=== PATIENT | female | born 1985 | race Caucasian/White ===

== ENCOUNTER 2019-07-07 20:00 | Emergency (ER) | payer BC, OTHER ==
[2019-07-07] MEDS ORDERED: methylPREDNISolone 125 MG* 2 ML VIAL IV ONE (21:06)
[2019-07-07] MEDS ORDERED: diPHENhydraMINE IV* 50 MG/ML 1 ml VIAL (BENADRYL) IM ONE (21:06)
--- NOTE | 2019-07-07 21:07 | ED ---
Skin Complaint - HPI Summary HPI Summary: This pt is a 34 Y/O F presenting to [facility] accompanied by her with a CC of hives that started in 07/06/19 in the morning without improvements and are currently rated a 02/10 in severity. She states that the hives spread from her legs and currently cover her entire body. She states that her shoulders have been itchy and her hives were originally itchy as well but she states that she became SOB and has had decreased itchiness. She states that she was placed on clindamycin for 4 times a day and was taking it for over a week. She states that she has been taking prednisone which was prescribed by her PCP. She states that she has been having a nonproductive cough and states that she feels phlegmy. She denies any CP, headaches, N/V, and fevers. She has no known aggravating or alleviating factors. She has a pertinent PMHx of allergies to mushrooms, penicillin, and ALL brand laundry detergent. She states that she breaks out in hives. - History of Current Complaint Chief Complaint: EDAllergicReaction Time Seen by Provider: 07/07/19 20:48 Stated Complaint: ALLERGIC REACTION/RESP DISTRESS PER PT Hx Obtained From: Patient Onset/Duration: Started Days Ago - 1 Skin Exposure Onset/Duration: Days Ago - 1 Timing: Constant Onset Severity: Mild Current Severity: Mild Pain Intensity: 2 Pain Scale Used: 0-10 Numeric Skin Location: Diffuse, Face, Chest, Arm, Leg, Other: - trunk Character: Hives Aggravating Symptom(s): Nothing Alleviating Symptom(s): Nothing Associated Signs & Symptoms: Negative - CP, headaches, N/V, and fevers, Difficulty Breathing - Allergy/Home Medications Allergies/Adverse Reactions: Allergies Allergy/AdvReac Type Severity Reaction Status Date / Time mushroom Allergy Anaphylatic Verified 07/07/19 20:07 Shock Penicillins Allergy Hives Verified 07/07/19 20:07 ALL brand laundry detergent Allergy Hives Uncoded 07/07/19 20:08 Home Medications: Home Medications Norethindrone (NF) [Leanne (NF)] 0.35 mg PO DAILY 07/07/19 [History Confirmed 07/07/19] PMH/Surg Hx/FS Hx/Imm Hx Previously Healthy: Yes Endocrine/Hematology History: Denies: Hx Diabetes Cardiovascular History: Denies: Hx Hypertension Respiratory History: Denies: Hx Asthma Sensory History: Reports: Hx Contacts or Glasses Opthamlomology History: Reports: Hx Contacts or Glasses EENT History: Reports: Other - Mushroom, Penicillins, and ALL brand laundry detergent (hives) - Cancer History Hx Chemotherapy: No Hx Radiation Therapy: No - Surgical History Surgical History: Yes Surgery Procedure, Year, and Place: Gallbladder removal, 2006 - Immunization History Immunizations Up to Date: Yes Infectious Disease History: No Infectious Disease History: Denies: Traveled Outside the [place] in Last 30 Days - Family History Known Family History: Positive: Hypertension - Father , Diabetes - Paternal grndmother , Other - Maternal Grandmother: [place] - Social History Occupation: Unemployed Lives: With Family Alcohol Use: None Hx Substance Use: Yes Substance Use Type: Reports: Marijuana Substance Use Comment - Amount & Last Used: States that she quit 7 years ago Hx Tobacco Use: Yes Smoking Status (MU): Former Smoker Type: Cigarettes Amount Used/How Often: <PPD Length of Time of Smoking/Using Tobacco: Quit in 2011 Review of Systems Negative: Fever Negative: Chest Pain Positive: Shortness Of Breath Negative: Vomiting, Nausea Positive: Rash - States diffuse hives Negative: Headache All Other Systems Reviewed And Are Negative: Yes Physical Exam - Summary Physical Exam Summary: General: Well-developed, morbidly obese female. No acute distress. HEENT: Normocephalic, Atraumatic. Eyes: Conjuctiva normal, PERRL. Oropharynx: Clear, mucous membranes moist, (-) exudates. Neck: Soft, FROM, (-) lymphadenopathy, (-) thyromegaly, (-) JVD. Cardiovascular: Normal sinus rhythm, (-) murmur. Lungs: Clear to auscultation bilaterally (-) wheezes, (-) rales, (-) rhonchi. Abdomen: Soft, non-tender, non-distended, (-) organomegaly, normal bowel sounds. Back: (-) CVA tenderness Extremities: No edema. Skin: Warm, diffuse hives on her face, arms, trunk, back and legs. Neuro: Alert and oriented x3, no focal deficits. Psychiatric: Mood normal, affect normal. Triage Information Reviewed: Yes Vital Signs On Initial Exam: Initial Vitals Temp Pulse Resp BP Pulse Ox 98.0 F 110 20 148/91 100 12/12/19 20:03 07/07/19 20:03 07/07/19 20:03 07/07/19 20:03 07/07/19 20:03 Vital Signs Reviewed: Yes Procedures - Sedation Patient Received Moderate/Deep Sedation with Procedure: No Diagnostics - Vital Signs Vital Signs Temp Pulse Resp BP Pulse Ox 07/07/19 20:03 98.0 F 110 20 148/91 100 - Laboratory Lab Statement: Any lab studies that have been ordered have been reviewed, and results considered in the medical decision making process. Course/Dx - Course Course Of Treatment: 34-year-old female presents with hives. Patient has recently been on indomethacin. Has stopped that. Is being treated with Benadryl and prednisone, 20 mg daily. Today's having mild lightheadedness and shortness of breath after taking medicine. physical exam demonstrates hives. patient given benadryl, pepcid, solumedrol with improvement of symptoms. discharged to home. avoid clindamycin. follow up with PCP. follow up sooner for any worsening symptoms. prednisone increased. - Diagnoses Provider Diagnoses: Hives Discharge ED - Sign-Out/Discharge Documenting (check all that apply): Patient Departure - discharge - Discharge Plan Condition: Stable Disposition: HOME Prescriptions: predniSONE [Prednisone 20 MG TAB] 20 mg PO BID 5 Days #10 tablet Patient Education Materials: Urticaria (ED) Referrals: [facility] [Outside] - 2 Days Additional Instructions: Please follow up with your primary care provider in 1-3 days and return to the emergency department for any new or worsening symptoms. Your dose of Prednisone has been increased. Please avoid Clindamycin until you have been allergy tested. - Billing Disposition and Condition Condition: STABLE Disposition: Home - Attestation Statements Document Initiated by Grahamibveronica: Yes Documenting Scribe: Dhaval Loera Provider For Whom Melany is Documenting (Include Credential): Jennifer Wray MD Scribe Attestation: Dhaval Alcocer, scribed for Jennifer Wray MD on 07/11/19 at 2152. Scribe Documentation Reviewed: Yes Provider Attestation: The documentation as recorded by the Dhaval tovar accurately reflects the service I personally performed and the decisions made by me, Jennifer Wray MD Status of Scribe Document: Viewed
[2019-07-07] MEDS ORDERED: Famotidine TAB* 20 MG PO ONE (21:09)
[2019-07-07 22:30] VITALS: BP 141/79
== END 2019-07-07 22:28 | disposition home or self-care (01) ==
LOC: ED 20:00
DX: L50.9 Urticaria, unspecified (principal); Z87.891 Personal history of nicotine dependence; Z90.49 Acquired absence of other specified parts of digestive tract; Z88.0 Allergy status to penicillin
CPT/HCPCS: 96372; 96374; 99283; A9270-GY; J1200; J2930